=== PATIENT | female | born 1990 | race Caucasian/White ===

== ENCOUNTER → 2020-07-09 13:23 | Outpatient (CLI) | payer OTHER, SELFPAY ==
[2020-07-09 10:14] VITALS: BMI 30.7
[2020-07-16 14:10] LABS: HPV APTIMA, High Risk Negative (Negative)
== END ==
PROVIDERS: Referring Provider Nurse Practitioner Women's Health; Visit Provider Nurse Practitioner Women's Health
DX: Z12.4 Encounter for screening for malignant neoplasm of cervix (principal)
CPT/HCPCS: 87624; 88175; G0145

== ENCOUNTER → 2023-10-16 | Outpatient (CLI) | payer BC, SELFPAY ==
[2023-10-16 15:37] LABS: Ferritin 11 ng/mL (8-252)
[2023-10-20 14:08] LABS: Anti-Nuclear Antibody Test Negative (.)
== END | disposition home or self-care (01) ==
LOC: MTLAB 11:38
PROVIDERS: Referring Provider Physician Assistant; Visit Provider Physician Assistant
DX: L57.8 Other skin changes due to chronic exposure to nonionizing radiation (principal); L65.9 Nonscarring hair loss, unspecified; L21.8 Other seborrheic dermatitis; D23.39 Other benign neoplasm of skin of other parts of face
CPT/HCPCS: 36415; 82728; 86038